=== PATIENT | male | born 1965 | race Two or more races ===

== ENCOUNTER 2019-03-29 18:29 | Emergency (ER) | payer BC ==
--- NOTE | 2019-03-29 19:24 | EDM.PDOC ---
ED HPI GENERAL MEDICAL PROBLEM - General Chief Complaint: Lower Extremity Injury/Pain Stated Complaint: RT KNEE PAIN Time Seen by Provider: 03/29/19 18:48 Source of Information: Reports: Patient History Limitations: Reports: No Limitations - History of Present Illness INITIAL COMMENTS - FREE TEXT/NARRATIVE: HISTORY AND PHYSICAL: History of present illness: Patient is a 53-year-old male who presents to the ED today with concern of right knee pain and swelling since this morning. Patient states when he woke up he first noticed the pain but over the course of the workday he states that he has been unable to walk on it due to pain. Patient denies any direct trauma or injury to the knee or any prior injury or trauma. Patient denies any redness to the knee or any fevers. Patient denies any other symptoms or concerns. Patient denies fever, chills, chest pain, shortness of breath, or cough. Denies headache, neck stiff ness, change in vision, syncope, or near syncope. Denies nausea, vomiting, abdominal pain, diarrhea, constipation, or dysuria. Has not noted any blood in urine or stool. Patient has been eating and drinking appropriately. Review of systems: As per history of present illness and below otherwise all systems reviewed and negative. Past medical history: As per history of present illness and as reviewed below otherwise noncontributory. Surgical history: As per history of present illness and as reviewed below otherwise noncontributory. Social history: See social history for further information Family history: As per history of present illness and as reviewed below otherwise noncontributory. Physical exam: General: Patient is alert, oriented, and in no acute distress. Patient sitting comfortably on exam table. HEENT: Atraumatic, normocephalic, pupils equal and reactive bilaterally, negative for conjunctival pallor or scleral icterus, mucous membranes moist, TMs normal bilaterally, throat clear, neck supple, nontender, trachea midline. No drooling or trismus noted. No meningeal signs. No hot potato voice noted. Lungs: Clear to auscultation, breath sounds equal bilaterally, chest nontender. Heart: S1S2, regular rate and rhythm without overt murmur Abdomen: Soft, nondistended, nontender. Negative for masses or hepatosplenomegaly. Negative for costovertebral tenderness. Pelvis: Stable nontender. Genitourinary: Deferred. Rectal: Deferred. Skin: Intact, warm, dry. No lesions or rashes noted. Extremities: Atraumatic, negative for cords or calf pain. Neurovascular unremarkable. The right knee is mildly edematous in comparison to the left. Patient does have partial range of motion of the right knee but does have moderate pain with range of motion of the right knee. Patient has pain with palpation of the superior lateral knee. No erythema or warmth noted of the right knee. Dorsalis pedis and posterior tibial pulses are grossly intact of the right lower extremity with capillary refill less than 2 seconds. Neuro: Awake, alert, oriented. Cranial nerves II through XII unremarkable. Cerebellum unremarkable. Motor and sensory unremarkable throughout. Exam nonfocal. Notes: Dr. Dias directly involved in patient care. Discussed importance for follow-up with orthopedic provider. Voices understanding and is agreeable to plan of care. Denies any further questions or concerns at this time. Diagnostics: CBC, CMP, Uric acid, Knee XR Therapeutics: Knee immobilizer and crutches Prescription: Diclofenac Impression: Right knee pain Plan: 1. Rest, ice, elevate the affected extremity. You can apply ice 15 minutes on, 15 minutes off. 2. Tylenol as directed for pain management or discomfort. Take medication as prescribed. 3. Follow up with the Orthopedic provider as discussed. Return to the ED as needed and as discussed. Definitive disposition and diagnosis as appropriate pending reevaluation and review of above. Right Knee Pain Score (Numeric/FACES): 7 - Related Data Allergies Allergy/AdvReac Type Severity Reaction Status Date / Time No Known Allergies Allergy Verified 03/29/19 18:42 Home Meds: Home Meds Albuterol Sulfate [Albuterol Sulfate Hfa] 1 puff INH ASDIRECTED 03/29/19 [ History] Fluticasone/Salmeterol [Advair 100-50] 1 puff INH DAILY 03/29/19 [History] Past Medical History Respiratory History: Reports: Asthma - Infectious Disease History Infectious Disease History: Reports: None - Past Surgical History Other GI Surgeries/Procedures: gallstone Musculoskeletal Surgical History: Reports: Other (See Below) Other Musculoskeletal Surgeries/Procedures:: knee surgery. right shoulder Social & Family History - Family History Family Medical History: Noncontributory - Tobacco Use Smoking Status *Q: Current Every Day Smoker Years of Tobacco use: 5 Packs/Tins Daily: 0.5 - Caffeine Use Caffeine Use: Reports: Coffee, Soda - Recreational Drug Use Recreational Drug Use: No Review of Systems - Review of Systems Review Of Systems: Comprehensive ROS is negative, except as noted in HPI. ED EXAM, GENERAL - Physical Exam Exam: See Below (see dictation) Course - Vital Signs Last Recorded V/S: Last Vital Signs Temp 97.2 F 03/29/19 18:43 Pulse 80 03/29/19 18:43 Resp 18 03/29/19 18:43 BP 139/84 03/29/19 18:43 Pulse Ox 96 03/29/19 18:43 - Orders/Labs/Meds Orders: Active Orders 24 hr Category Date Time Status DME for Discharge [COMM] Stat Oth 03/29/19 20:00 Ordered Labs: Laboratory Tests 03/29/19 03/29/19 Range/Units 19:25 19:25 WBC 13.11 H (4.0-11.0) K/uL RBC 4.98 (4.50-5.90) M/uL Hgb 15.1 (13.0-17.0) g/dL Hct 43.1 (38.0-50.0) % MCV 86.5 (80.0-98.0) fL MCH 30.3 (27.0-32.0) pg MCHC 35.0 (31.0-37.0) g/dL RDW Std Deviation 42.7 (28.0-62.0) fl RDW Coeff of Berenice 14 (11.0-15.0) % Plt Count 239 (150-400) K/uL MPV 9.20 (7.40-12.00) fL Neut % (Auto) 63.1 (48.0-80.0) % Lymph % (Auto) 25.6 (16.0-40.0) % [place] % (Auto) 5.0 (0.0-15.0) % Eos % (Auto) 6.1 (0.0-7.0) % Baso % (Auto) 0.2 (0.0-1.5) % Neut # (Auto) 8.3 H (1.4-5.7) K/uL Lymph # (Auto) 3.4 H (0.6-2.4) K/uL [place] # (Auto) 0.7 (0.0-0.8) K/uL Eos # (Auto) 0.8 H (0.0-0.7) K/uL Baso # (Auto) 0.0 (0.0-0.1) K/uL Nucleated RBC % 0.0 /100WBC Nucleated RBCs # 0 K/uL Sodium 140 (136-148) mmol/L Potassium 4.0 (3.5-5.1) mmol/L Chloride 105 (98-107) mmol/L Carbon Dioxide 23.8 (21.0-32.0) mmol/L BUN 14 (7.0-18.0) mg/dL Creatinine 0.9 (0.8-1.3) mg/dL Est Cr Clr Drug Dosing 94.92 mL/min Estimated GFR (MDRD) > 60.0 ml/min Glucose 100 (74-106) mg/dL Uric Acid 5.2 (2.6-7.2) mg/dL Calcium 8.9 (8.5-10.1) mg/dL Total Bilirubin 0.4 (0.2-1.0) mg/dL AST 42 H (15-37) IU/L ALT 92 H (14-63) IU/L Alkaline Phosphatase 95 (46-116) U/L Total Protein 7.7 (6.4-8.2) g/dL Albumin 4.1 (3.4-5.0) g/dL Globulin 3.6 (2.6-4.0) g/dL Albumin/Globulin Ratio 1.1 (0.9-1.6) Departure - Departure Time of Disposition: 20:02 Disposition: Home, Self-Care 01 Clinical Impression: Right knee pain Qualifiers: Chronicity: acute Qualified Code(s): M25.561 - Pain in right knee - Discharge Information Referrals: PCP,None [Primary Care Provider] - Forms: ED Department Discharge Additional Instructions: The following information is given to patients seen in the emergency department who are being discharged to home. This information is to outline your options for follow-up care. We provide all patients seen in our emergency department with a follow-up referral. The need for follow-up, as well as the timing and circumstances, are variable depending upon the specifics of your emergency department visit. If you don't have a primary care physician on staff, we will provide you with a referral. We always advise you to contact your personal physician following an emergency department visit to inform them of the circumstance of the visit and for follow-up with them and/or the need for any referrals to a consulting specialist. The emergency department will also refer you to a specialist when appropriate. This referral assures that you have the opportunity for follow-up care with a specialist. All of these measure are taken in an effort to provide you with optimal care, which includes your follow-up. Under all circumstances we always encourage you to contact your private physician who remains a resource for coordinating your care. When calling for follow-up care, please make the office aware that this follow-up is from your recent emergency room visit. If for any reason you are refused follow-up, please contact the Emergency Department at and asked to speak to the emergency department charge nurse. [facility] [address] [place] [id number] [address] Special[facility] [address], [address] [place] [address] 1. Rest, ice, elevate the affected extremity. You can apply ice 15 minutes on, 15 minutes off. 2. Tylenol as directed for pain management or discomfort. Take medication as prescribed. 3. Follow up with the Orthopedic provider as discussed. Return to the ED as needed and as discussed. Sepsis Event Note - Evaluation Sepsis Screening Result: No Definite Risk - Focused Exam Vital Signs: Vital Signs Temp Pulse Resp BP Pulse Ox 03/29/19 18:43 97.2 F 80 18 139/84 96 Date Exam was Performed: 03/29/19 Time Exam was Performed: 20:00 - My Orders Last 24 Hours: My Active Orders 03/29/19 20:00 DME for Discharge [COMM] Stat - Assessment/Plan Last 24 Hours: My Active Orders 03/29/19 20:00 DME for Discharge [COMM] Stat
--- NOTE | 2019-03-29 19:27 | CR ---
Right knee: AP, lateral and sunrise patellar views of the right knee were obtained. Comparison: No prior knee study. Moderately severe medial joint space narrowing is noted. Osteophytes are noted off the medial and lateral tibia. Slight spurring is also noted off the intercondylar tibial spines. Slight spurring is noted within the patella. Small joint effusion is seen. No acute fracture or other abnormality is seen. Impression: 1. Degenerative change as noted above. 2. Small joint effusion. Diagnostic code #3 This report was dictated in [place] Standard Time
[2019-03-29 19:48] LABS: BLOOD UREA NITROGEN,BUN 14 mg/dL (7.0-18.0); CARBON DIOXIDE,CO2 23.8 mmol/L (21.0-32.0); CHLORIDE,CL 105 mmol/L (98-107); GLUCOSE RANDOM 100 mg/dL (74-106); SODIUM,NA 140 mmol/L (136-148)
== END 2019-03-29 20:52 | disposition home or self-care (01) ==
LOC: MW.ED 18:29
DX: M25.561 Pain in right knee (principal); R74.0 Nonspecific elevation of levels of transaminase and lactic acid dehydrogenase [LDH]; J45.909 Unspecified asthma, uncomplicated; F17.210 Nicotine dependence, cigarettes, uncomplicated
CPT/HCPCS: 36415; 73562-26-RT; 73562-RT; 80053; 84550; 85025; 99283; 99283-25